=== PATIENT | male | born 1955 | race Caucasian/White ===

== ENCOUNTER 2016-10-31 13:32 | Inpatient (IN) ==
--- NOTE | 2016-10-28 14:51 | Discharge Summary ---
<Caroline Nielsen - Last Filed: 10/30/16 21:28> Date of Encounter: 10/30/16 - Discharge Diagnosis (1) Arthritis of right hip Priority: Primary Status: Acute (2) HTN (hypertension) Priority: Secondary Status: Chronic Qualifiers: Hypertension type: essential hypertension Qualified Code(s): I10 - Essential (primary) hypertension (3) Chronic pain Priority: Secondary Status: Chronic Comments: Hydrocodone/aravind 7.5/325mg BID - #60 LD 10/18/16 - Dr. Mills The plan will be to HOLD chronic pain medication at discharge, and start Oxycodone 5mg 1-2 tablets q 6 hours-~~~ This will be continued for 1-2 weeks post-op, then tapered down to~ normal dosage. Qualifiers: Chronic pain type: other chronic pain Qualified Code(s): G89.29 - Other chronic pain (4) Spinal stenosis Priority: Secondary Status: Chronic Qualifiers: Spinal region: unspecified Qualified Code(s): M48.00 - Spinal stenosis, site unspecified (5) COPD (chronic obstructive pulmonary disease) Priority: Secondary Status: Chronic Qualifiers: COPD type: unspecified COPD Qualified Code(s): J44.9 - Chronic obstructive pulmonary disease, unspecified (6) History of abdominal aortic aneurysm (AAA) Priority: Secondary Status: Chronic - Discharge Medications Home Medications: Aspirin Enteric Coated [Aspirin EC] 325 mg PO DAILY #21 tablet. 10/30/16 [Rx] OxyCODONE Immed Rel [Roxicodone 5 MG] 5 - 10 mg PO Q6HR PRN #40 tablet 10/30/16 [Rx] Atenolol [Tenormin] 25 mg PO DAILY 10/31/16 [History] Etodolac [Lodine] 400 mg PO BID 10/31/16 [History] Hydroxyzine HCl 50 mg PO Q6H PRN 10/31/16 [History] Allergies/Adverse Reactions: Allergies Penicillins Allergy (Verified 10/31/16 18:21) Nausea Primary care physician: LEMUEL Levin - Patient Status Disposition: Transfer Inpatient Rehab Fac Condition: Good - Discharge Instructions Follow Up With: Dexter Felder MD [Partnered Physician] - 11/29/16 9:35 am Caroline Nielsen, RIZWANA [Physician Bait Painter] - 11/10/16 11:45 am Verna Valentino CNP [Primary Care Provider] - Additional Instructions: Discharge Instructions: Total Hip Replacement Please call [facility] ([phone]), your Primary Care Physician, or report to the Emergency Room if you have any of the following symptoms: Nausea, vomiting, fever greater that 101.5, swelling, chest pain, shortness of breath, increased pain/redness/drainage/odor for your incision site, numbness/ tingling, or any other concerning symptoms. ACTIVITY:Weight-bearing as tolerated for 8 weeks with hip dislocation precautions that physical therapy taught you. You may progress as tolerated under the guidance of your physical therapist. You do not need to sleep with a pillow between your legs. You can also seep on the operative side or on your stomach. MEDICATIONS: Upon discharge resume your home medications. Take all the medications as prescribed. Take a stool softener if taking narcotic pain medications. Stool softeners are only effective if you drink enough fluids. Drink 6-8 glass of water or fluids a day, unless this is not allowed for another health problem. Despite using stool softeners, if you haven't had a bowel movement in 3 days, please switch to a gentle laxative. Gentle laxatives are sold over the counter. You should have a bowel movement within 24 hours, if not call the office. You will be discharged from the hospital with a prescription for pain medication. You are encouraged to decrease the use of narcotic pain medication as tolerated. Should you require a refill, please call the office. [facility] prescribes narcotic pain medication for only 4-6 weeks after surgery. If you require pain medication beyond this time periord, you may be referred to your Primary Care Physician or to the Pain Clinic for further evaluation. Plan ahead for refills on pain medication as many narcotics either need to be picked up at the office or mailed. It is best to call 48-72 hours in advance of needing a prescription refill so you don't run out of medication. To help control the post-operative pain, you may take NSAIDs (Aleve,Advil, Motrin, ibuprofen, naprosyn) or Tylenol as prescribed on the bottle in addition to the pain medication. ANTICOAGULATION (blood thinners): Continue your Aspirin, Lovenox or Coumadin as prescribed to help prevent a blood clot in the leg or in the lungs. As long as your incision remains dry and you tolerate the NSAIDs (Aleve, Advil, Motrin, ibuprofen, naprosyn), it is OK to use the NSAIDS while you are taking your anticoagulation medication. Should your incision start to drain, stop the NSAID and contact our office. Common symptoms of blood clot in the legs include: localized pain, swelling, calf tenderness, redness or discoloration of the skin. Blood clot in the lung symptoms include: shortness of breath, rapid pulse, sweating, and chest pain that worsens with deep breathing, coughing up blood, lightheadedness, feelings of anxiety. If you experience any of these symptoms notify your physician immediately, go to the emergency room, or if having trouble breathing, call 911. WOUND CARE: Leave the dressing on for 7 days. You may change the dressing if it is saturated greater than 50%. You can shower but not a tub bath or submerge your incision in water. Wash your hands with antibacterial soap, rinse and dry prior to any wound care. If you have yuriy the visiting nurse or rehab facility can remove the stapes 10-14 days after surgery and place steri-strips across the wound. Leave the steri-strips in place until they fall off on their won. You may let water from the shower run on top of the steri-stirips. If you do not have a visiting nurse or rehab facility, you will need to return to the office at 10-14 days for the yuriy to be removed. FOLLOW-UP: Please follow up with your surgeon in the orthopedic clinic in 6 weeks from the day of surgery. If you have yuriy that need to be removed, you will need to come back to the office in 10-14 days from the day of surgery. - Hospital Course Hospital course: Mr. Ortiz is a 61 year old male - Time Spent with Patient Total time spent providing and/or coordinating discharge services: <Dexter Felder - Last Filed: 11/03/16 08:02> Date of Encounter: 11/03/16 Time of Encounter: 08:02 - Discharge Diagnosis (1) Arthritis of right hip Priority: Primary Status: Acute (2) HTN (hypertension) Priority: Secondary Status: Chronic Qualifiers: Hypertension type: essential hypertension Qualified Code(s): I10 - Essential (primary) hypertension (3) Chronic pain Priority: Secondary Status: Chronic Qualifiers: Chronic pain type: other chronic pain Qualified Code(s): G89.29 - Other chronic pain (4) Spinal stenosis Priority: Secondary Status: Chronic Qualifiers: Spinal region: unspecified Qualified Code(s): M48.00 - Spinal stenosis, site unspecified (5) COPD (chronic obstructive pulmonary disease) Priority: Secondary Status: Chronic Qualifiers: COPD type: unspecified COPD Qualified Code(s): J44.9 - Chronic obstructive pulmonary disease, unspecified (6) History of abdominal aortic aneurysm (AAA) Priority: Secondary Status: Chronic Primary care physician: LEMUEL Levin - Patient Status Functional capacity at discharge: uses cane/walker Overall status at discharge: patient is progressing back to baseline - Hospital Course Hospital course: Mr. Ortiz is a 61 year old male The patient had an uneventful postoperative course. They received antibiotics and physical therapy and were discharged in stable condition. There will follow -up in the office in 2 weeks. Aspirin DVT prophylaxis - Time Spent with Patient Total time spent providing and/or coordinating discharge services:
[2016-10-31] MEDS ORDERED: Lidocaine -MPF 1% 2 ML VIAL ID ONE (13:58)
[2016-10-31] MEDS ORDERED: Clindamycin 900 MG/50 ML 900 MG/50 ML IV.SOLN IVPB ONE (13:58)
[2016-10-31] MEDS ORDERED: Famotidine 20 MG/2 ML VIAL IVP ONE (14:00)
[2016-10-31] MEDS ORDERED: Ringers Solution, Lactated 1,000 ML IVC SCH ×2 (14:00)
[2016-10-31] MEDS ORDERED: Albuterol 2.5 MG/3 ML NEBULIZER IH ONE (14:05)
--- NOTE | 2016-10-31 14:05 | Anesthesia Evaluation PreOp ---
Date of Encounter: 10/31/16 Time of Encounter: 14:00 - Past History Planned Operation: Rt THR Cardiac History: HTN, Other (AAA being followed...stable) Pulmonary History: Former smoker FRAME OPENER History: Other (Spinal Stenosis) Other Medical History: Denies Any Significant HX (Creatinine), Renal Anesthesia History: No Prior Anesthetic Complications Alcohol Use: none Drug use: none Medications and Allergies Aspirin Enteric Coated [Aspirin EC] 325 mg PO DAILY #21 tablet. 10/30/16 [Rx] OxyCODONE Immed Rel [Roxicodone 5 MG] 5 - 10 mg PO Q6HR PRN #40 tablet 10/30/16 [Rx] Allergies Penicillins Allergy (Verified 08/08/16 22:03) Nausea - Meds/Allergy Pre-op Review Medications Reviewed: Yes Allergies Reviewed: Yes Beta Blockers on Current Med List: No Anesthesia Results - Labs Laboratory Tests 10/24/16 10/24/16 10/26/16 14:50 14:50 14:35 Hgb 13.7 Hct 41.7 Plt Count TNP Sodium 138 Potassium 4.7 H BUN 14 Creatinine 1.45 H - Imaging EKG: report reviewed (SR) Anesthesia Exam O2 Sat Height 1.85 m Weight 90.265 kg O2 Sat by Pulse Oximetry 96 Vital Signs Temp Pulse Resp BP Pulse Ox 97.9 F 53 16 142/77 96 10/31/16 13:37 10/31/16 13:37 10/31/16 13:37 10/31/16 13:37 10/31/16 13:37 Height: 6'1 Weight: 199 lbs NPO (# of Hours): MN Pain Scale: 0 - HEENT Pupil (Motor): Pupils equal, EOMI Mallampati: III Teeth: Edentulous Oral Opening: Less than or equal to 3 - FRAME OPENER LOC: Oriented FRAME OPENER Motor: Normal RUE, Normal LUE, Normal RLE, Normal LLE, Normal Face FRAME OPENER Sensory: Normal: RUE, LUE, RLE, LLE, Face - Cardiac Rhythm: Regular Murmur: None JVD: No Carotid Bruit: No - Pulmonary Breath Sounds: bilateral Clear Respiratory Effort: Symmetrical Anesthesia Assess/Plan ASA Score: 3 (HTN AAA(stable) Anxiety) Modified [place] Scale for Level of Consciousness: Cooperative, oriented, and tranquil Anesthetic Plan: General Monitoring Plan: Standard Monitors Recovery Plan: PACU (Discussed GA, agrees melonie proceed)
[2016-10-31] MEDS ORDERED: *HR* FentaNYL (PF) 100 MCG/2 ML VIAL ONE ×2 (14:13→15:49)
[2016-10-31] MEDS ORDERED: *HR* Midazolam HCl 2 MG/2 ML VIAL ONE (14:13)
[2016-10-31] MEDS ORDERED: *HR* Succinylcholine 200 MG/10 ML VIAL IVP ONE (14:13)
[2016-10-31] MEDS ORDERED: *HR* Propofol 200 MG/20 ML VIAL IVP ONE ×2 (14:13→15:50)
[2016-10-31] MEDS ORDERED: Ondansetron 4 MG/2 ML VIAL ONE ×2 (14:13→15:50)
[2016-10-31] MEDS ORDERED: Lidocaine -MPF 2% 2 ML VIAL ONE ×2 (14:13→15:50)
--- NOTE | 2016-10-31 14:17 | History & Physical Report ---
Date of Encounter: 10/31/16 Time of Encounter: 14:16 24 Hour HP Update - Instructions Instructions: If the History and Physical is less than 30 days old and was completed prior to A.M. admission and or procedure and has NOT been updated on calendar day of procedure please complete this update prior to performing procedure. - Update Patient reports changes in Medical Condition: No Changes in examination, assessment, or condition: No Changes in Medication: No Preop tests/diagnostics Reviewed: Yes Surgery Remains Indicated: Yes Consent for Planned Operative Procedure(s) Verified: Yes - Pre-Operative Checklist Preoperative Checklist Indicated: No Prophylactic Antibiotic Ordered: Yes Is VTE Prophylaxis Indicated?: Yes
[2016-10-31] MEDS ORDERED: *HR* Rocuronium Bromide 50 MG/5 ML VIAL ONE (15:50)
[2016-10-31] MEDS ORDERED: Dexamethasone 4 MG/ML VIAL ONE (15:50)
[2016-10-31] MEDS ORDERED: Lidocaine -MPF 4% 5 ML AMPUL ONE (15:55)
[2016-10-31] MEDS ORDERED: EPHEDrine 50 MG/ML VIAL ONE (16:05)
--- NOTE | 2016-10-31 16:36 | Orthopedic Operative Note ---
Date of procedure: 10/31/16 Pre-op diagnosis: Severe right hip arthritis proximal femoral migration Post-op diagnosis: same (Flexion contracture) Procedure: Procedure: Right Total Hip Replacment Estimated blood loss: 200 cc Hardware: Biomet DM Cup: 66 G7 fin cup Femoral size 13 echo full profile lateralized stem Head: +12 head with Apurva Procedural Notes: End-stage arthritis femoral head acetabular socket, 45 degree fixed flexion contracture. Operative procedure: The patient was brought to the operating room and placed on the operating room table. After general anesthesia was administered the patient was placed in the lateral decubitus position with the operative leg up. All pressure points were padded appropriately and the head was stabilized in the neutral position. The operative extremity was prepped and draped in the sterile surgical fashion patient received IV antibiotic prior to skin incision. A standard posterior approach is made to the operative hip, the incision was made through the skin and subcutaneous tissue hemostasis was obtained with Bovie cautery. Using careful sharp dissection the fascia was identified and incised exposing the external rotators. The external rotators were released off the greater trochanter and tagged with #2 FiberWire suture. The capsule was T'd open and the hip was brought into internal rotation. Patient noted to have grade 4 arthritic changes femoral head. The femoral neck cut was made at the appropriate level. An anterior capsulotomy was performed for the anterior retractor. Soft tissues removed from the acetabulum. Patient noted to have grade 4 arthritic changes acetabulum. Acetabulum was first reamed medially, and then reamed in 15 degrees of anteversion and 45 degrees off the horizontal. It was reamed up to the appropriate size 66 The appropriate-sized 66 acetabular cup was impacted in place in 15 degrees of anteversion and 45 degrees off the horizontal. This had good fit and fixation. The hip was brought back in to internal rotation and prepared with the box spring upholsterer followed by the canal finder followed by broaching process in 20 degrees anteversion. It was broached up to the appropriate size 13 The femoral implant was impacted in place in 20 degrees of anteversion. Trial reduction found the hip to be stable with a +12 head and Apurva. The trials were removed and the real implants were impacted in place. The hip was stable with forward flexion to 90 degrees adduction of 30 degrees internal rotation 60 degrees. Patient had improvement of flexion contracture was still tight loss of full extension 30 degrees. Leg lengths unable to be appropriately evaluated due to loss of full extension. The hips after 2 minutes with a Betadine saline solution. It was irrigated out with 2 L of pulse irrigation. The external rotators were reattached to drill holes in the greater trochanter. Fascia was closed with a running #2 PDS suture. The deep tissue was irrigated and closed deep with #1 PDS suture superficially with 0 PDS suture and skin was closed with skin yuriy. The patient was placed in a sterile dressing and abduction pillow. The patient was extubated and transferred to the recovery room in stable condition. Anesthesia: CLAIRE Surgeon: Dexter Felder Master Sheet Clerk: Charlene Wagoner Condition: stable Disposition: PACU
[2016-10-31] MEDS ORDERED: Ondansetron 4 MG/2 ML VIAL IVP ONE (16:37)
[2016-10-31] MEDS ORDERED: Ketorolac 30 MG/ML VIAL ONE (16:39)
[2016-10-31] MEDS: *HR* Morphine 2 MG/ML SYRINGE IVP PRN ×5 (17:10→17:43)
[2016-10-31 17:54] LABS: Hematocrit 36.7 % (37.5-50.1)
[2016-10-31 17:56] LABS: Hemoglobin 11.9 g/dL (12.9-16.9)
--- NOTE | 2016-10-31 17:56 | Anesthesia Evaluation Post Op ---
Date of Encounter: 10/31/16 Time of Encounter: 17:56 - Vital Signs Vital Signs: Vital Signs/O2 Sat/Glucose, Most Current Temp Pulse Resp BP Pulse Ox 10/31/16 17:45 54 16 131/81 94 10/31/16 17:35 97.6 F 62 16 136/86 94 10/31/16 17:25 64 16 124/86 96 10/31/16 17:15 51 16 128/97 95 10/31/16 17:05 97.5 F L 58 12 136/111 98 10/31/16 14:26 16 142/77 96 10/31/16 14:06 97.9 F 53 16 142/77 96 - Lungs Lungs: Clear Ascult./Percussion - Airway Airway: Non-obstructed - Cardiovascular Regular Rate - Mental Status Mental Status: Alert & Oriented, Answers Appropriately - Pain Pain Scale: 4 - Nausea Vomiting Nausea Vomiting: Not Present - Hydration Hydration: Ice chips - Discharge PostOp Status: Transfer Patient to floor
[2016-10-31] MEDS ORDERED: *HR* Enoxaparin 30 MG/0.3 ML SYRINGE SQ SCH (18:00)
[2016-10-31] MEDS ORDERED: Ondansetron 4 MG/2 ML VIAL IVP PRN (18:17)
[2016-10-31] MEDS ORDERED: Naloxone 0.4 MG/ML INJ IVP PRN (18:17)
[2016-10-31] MEDS ORDERED: MOM Conc 10 ML UD.LIQ PO PRN (18:17)
[2016-10-31] MEDS ORDERED: Sennosides 8.6 MG TABLET PO PRN (18:17)
[2016-10-31] MEDS ORDERED: *HR* OxyCODONE Immed Rel 5 MG TABLET PO PRN (18:17)
[2016-10-31] MEDS ORDERED: Acetaminophen 325 MG TABLET PO PRN (18:17)
[2016-10-31] MEDS: Ringers Solution, Lactated 1,000 ML IVC SCH (20:02)
[2016-10-31] MEDS: Ascorbic Acid 500 MG TABLET PO SCH (20:02)
[2016-10-31] MEDS: *HR* OxyCODONE Immed Rel 5 MG TABLET PO PRN (21:31)
[2016-10-31] MEDS: Clindamycin 900 MG/50 ML 900 MG/50 ML IV.SOLN IVPB SCH (21:33)
[2016-11-01] MEDS: Temazepam 15 MG CAPSULE PO PRN ×2 (00:14→22:04)
[2016-11-01] MEDS: *HR* OxyCODONE Immed Rel 5 MG TABLET PO PRN ×4 (02:18→20:50)
[2016-11-01] MEDS: Clindamycin 900 MG/50 ML 900 MG/50 ML IV.SOLN IVPB SCH (05:03)
[2016-11-01] MEDS: *HR* Enoxaparin 30 MG/0.3 ML SYRINGE SQ SCH ×2 (05:06→16:22)
--- NOTE | 2016-11-01 06:49 | Orthopedics Progress Note ---
Date of Encounter: 11/01/16 Time of Encounter: 06:48 - Assessment and Plan (1) Arthritis of right hip Current Visit: Yes Status: Acute (2) HTN (hypertension) Current Visit: Yes Status: Chronic Qualifiers: Hypertension type: essential hypertension Qualified Code(s): I10 - Essential (primary) hypertension (3) Chronic pain Current Visit: Yes Status: Chronic Qualifiers: Chronic pain type: other chronic pain Qualified Code(s): G89.29 - Other chronic pain (4) Spinal stenosis Current Visit: Yes Status: Chronic Qualifiers: Spinal region: unspecified Qualified Code(s): M48.00 - Spinal stenosis, site unspecified (5) COPD (chronic obstructive pulmonary disease) Current Visit: Yes Status: Chronic Qualifiers: COPD type: unspecified COPD Qualified Code(s): J44.9 - Chronic obstructive pulmonary disease, unspecified (6) History of abdominal aortic aneurysm (AAA) Current Visit: Yes Status: Chronic Subjective Interval history: Patient was seen this morning doing well without complaints. Afebrile vital signs stable. Operative extremity: Neurovascularly intact Dressing clean dry and intact Calves nontender Assessment and plan: Continue with postoperative care Hematocrit 36 Objective Vital signs: Vital Signs Temp Pulse Resp BP Pulse Ox 11/01/16 06:40 99.4 F 49 14 114/74 95 11/01/16 06:38 96 11/01/16 04:07 99.1 F 66 15 123/78 94 11/01/16 00:06 98.3 F 51 15 122/72 95 10/31/16 22:05 98 F 60 14 113/78 96 10/31/16 21:00 97.9 F 52 12 122/85 96 10/31/16 20:08 97.6 F 50 14 105/64 95 10/31/16 19:48 97.5 F L 54 14 107/69 96 10/31/16 19:40 97.5 F L 54 14 107/69 96 10/31/16 18:23 97 10/31/16 18:18 97.8 F 52 12 127/83 98 10/31/16 17:55 97.5 F L 53 16 138/81 94 10/31/16 17:45 54 16 131/81 94 10/31/16 17:35 97.6 F 62 16 136/86 94 10/31/16 17:25 64 16 124/86 96 04/03/17 17:15 51 16 128/97 95 10/31/16 17:05 97.5 F L 58 12 136/111 98 10/31/16 14:26 16 142/77 96 10/31/16 14:06 97.9 F 53 16 142/77 96 10/31/16 13:37 97.9 F 53 16 142/77 96 Intake and Output 10/31/16 10/31/16 11/01/16 15:59 23:59 07:59 Intake Total 290 / 290 Balance 290 / 290 Intake: IV Fluids 50 / 50 Cleocin 900 MG/50 ML 900 50 / 50 mg In 50 ml @ 50 mls/hr IVPB Q8H RICHARD Rx#: [id number] Oral 240 / 240 Other: # Voids 1 Weight 90.265 kg - Labs CBC & BMP: 10/31/16 17:47 Labs: Abnormal lab results Hgb 11.9 g/dL (12.9-16.9) L D 10/31/16 17:47 Hct 36.7 % (37.5-50.1) L 10/31/16 17:47 - VTE Documentation of Mechanical Device: Venous foot pump, device Consult Discharge Plan - Plan Referrals: Verna Valentino MANUFACTURER'S REPRESENTATIVE [Primary Care Provider] -
[2016-11-01 07:03] LABS: Hemoglobin 10.7 g/dL (12.9-16.9)
[2016-11-01 07:21] LABS: Calcium 9.3 mg/dL (8.6-10.8); Potassium 4.3 mEq/L (3.5-4.5)
[2016-11-01] MEDS: Ascorbic Acid 500 MG TABLET PO SCH ×2 (09:31→16:22)
[2016-11-01] MEDS: Multivit/Ca/Min/Fe/FA 1 TAB TABLET PO SCH (09:33)
[2016-11-01] MEDS: Ringers Solution, Lactated 1,000 ML IVC SCH (09:38)
[2016-11-01] MEDS: Nicotine 21 MG PATCH.TD24 TD SCH (17:43)
[2016-11-01] MEDS: *HR* HYDROmorphone (PF) 1 MG/ML SYRINGE IVP PRN ×2 (18:14→22:03)
[2016-11-02] MEDS: *HR* OxyCODONE Immed Rel 5 MG TABLET PO PRN ×5 (00:11→20:24)
[2016-11-02] MEDS: *HR* Enoxaparin 30 MG/0.3 ML SYRINGE SQ SCH ×2 (06:37→16:22)
[2016-11-02 06:44] LABS: Hematocrit 31.8 % (37.5-50.1); Hemoglobin 10.5 g/dL (12.9-16.9)
[2016-11-02 07:06] LABS: Calcium 9.3 mg/dL (8.6-10.8); Potassium 3.9 mEq/L (3.5-4.5)
--- NOTE | 2016-11-02 08:28 | Orthopedics Progress Note ---
Date of Encounter: 11/02/16 Time of Encounter: 08:28 - Assessment and Plan (1) Arthritis of right hip Current Visit: Yes Status: Acute (2) HTN (hypertension) Current Visit: Yes Status: Chronic Qualifiers: Hypertension type: essential hypertension Qualified Code(s): I10 - Essential (primary) hypertension (3) Chronic pain Current Visit: Yes Status: Chronic Qualifiers: Chronic pain type: other chronic pain Qualified Code(s): G89.29 - Other chronic pain (4) Spinal stenosis Current Visit: Yes Status: Chronic Qualifiers: Spinal region: unspecified Qualified Code(s): M48.00 - Spinal stenosis, site unspecified (5) COPD (chronic obstructive pulmonary disease) Current Visit: Yes Status: Chronic Qualifiers: COPD type: unspecified COPD Qualified Code(s): J44.9 - Chronic obstructive pulmonary disease, unspecified (6) History of abdominal aortic aneurysm (AAA) Current Visit: Yes Status: Chronic Subjective Interval history: Patient was seen this morning doing well without complaints. Afebrile vital signs stable. Operative extremity: Neurovascularly intact Dressing clean dry and intact Calves nontender Assessment and plan: Continue with postoperative care Hematocrit 31 Objective Vital signs: Vital Signs Temp Pulse Resp BP Pulse Ox 11/02/16 06:29 98.1 F 61 20 151/82 96 11/02/16 00:32 98.3 F 64 18 122/68 97 11/01/16 19:46 98.7 F 85 17 141/68 96 11/01/16 14:51 97.7 F 58 16 132/79 96 11/01/16 10:30 98.2 F 48 14 110/70 96 Intake and Output 11/01/16 11/02/16 11/02/16 23:59 07:59 15:59 Intake Total 440 / 440 250 / 250 Output Total 450 / 450 300 / 300 Balance -10 / -10 -50 / -50 Intake: Oral 440 / 440 250 / 250 Output: Urine 450 / 450 300 / 300 Other: Meal Dinner Percent of Meal Consumed 50% - Labs CBC & BMP: 11/02/16 06:10 11/02/16 06:10 Labs: Abnormal lab results Hgb 10.5 g/dL (12.9-16.9) L 11/02/16 06:10 Hct 31.8 % (37.5-50.1) L 11/02/16 06:10 Creatinine 1.66 mg/dL (0.72-1.25) H 11/02/16 06:10 Est GFR ( Amer) 51 (> 60) L 11/02/16 06:10 Est GFR (Non-Af Amer) 42 (> 60) L 11/02/16 06:10 - VTE Documentation of Mechanical Device: Venous foot pump, device Consult Discharge Plan - Plan Additional Instructions: Discharge Instructions: Total Hip Replacement Please call [facility] ([phone]), your Primary Care Physician, or report to the Emergency Room if you have any of the following symptoms: Nausea, vomiting, fever greater that 101.5, swelling, chest pain, shortness of breath, increased pain/redness/drainage/odor for your incision site, numbness/ tingling, or any other concerning symptoms. ACTIVITY:Weight-bearing as tolerated for 8 weeks with hip dislocation precautions that physical therapy taught you. You may progress as tolerated under the guidance of your physical therapist. You do not need to sleep with a pillow between your legs. You can also seep on the operative side or on your stomach. MEDICATIONS: Upon discharge resume your home medications. Take all the medications as prescribed. Take a stool softener if taking narcotic pain medications. Stool softeners are only effective if you drink enough fluids. Drink 6-8 glass of water or fluids a day, unless this is not allowed for another health problem. Despite using stool softeners, if you haven't had a bowel movement in 3 days, please switch to a gentle laxative. Gentle laxatives are sold over the counter. You should have a bowel movement within 24 hours, if not call the office. You will be discharged from the hospital with a prescription for pain medication. You are encouraged to decrease the use of narcotic pain medication as tolerated. Should you require a refill, please call the office. [facility] prescribes narcotic pain medication for only 4-6 weeks after surgery. If you require pain medication beyond this time periord, you may be referred to your Primary Care Physician or to the Pain Clinic for further evaluation. Plan ahead for refills on pain medication as many narcotics either need to be picked up at the office or mailed. It is best to call 48-72 hours in advance of needing a prescription refill so you don't run out of medication. To help control the post-operative pain, you may take NSAIDs (Aleve,Advil, Motrin, ibuprofen, naprosyn) or Tylenol as prescribed on the bottle in addition to the pain medication. ANTICOAGULATION (blood thinners): Continue your Aspirin, Lovenox or Coumadin as prescribed to help prevent a blood clot in the leg or in the lungs. As long as your incision remains dry and you tolerate the NSAIDs (Aleve, Advil, Motrin, ibuprofen, naprosyn), it is OK to use the NSAIDS while you are taking your anticoagulation medication. Should your incision start to drain, stop the NSAID and contact our office. Common symptoms of blood clot in the legs include: localized pain, swelling, calf tenderness, redness or discoloration of the skin. Blood clot in the lung symptoms include: shortness of breath, rapid pulse, sweating, and chest pain that worsens with deep breathing, coughing up blood, lightheadedness, feelings of anxiety. If you experience any of these symptoms notify your physician immediately, go to the emergency room, or if having trouble breathing, call 911. WOUND CARE: Leave the dressing on for 7 days. You may change the dressing if it is saturated greater than 50%. You can shower but not a tub bath or submerge your incision in water. Wash your hands with antibacterial soap, rinse and dry prior to any wound care. If you have yuriy the visiting nurse or rehab facility can remove the stapes 10-14 days after surgery [address] steri-strips across the wound. Leave the steri-strips in place until they fall off on their won. You may let water from the shower run on top of the steri-stirips. If you do not have a visiting nurse or rehab facility, you will need to return to the office at 10-14 days for the yuriy to be removed. FOLLOW-UP: Please follow up with your surgeon in the orthopedic clinic in 6 weeks from the day of surgery. If you have yuriy that need to be removed, you will need to come back to the office in 10-14 days from the day of surgery. Referrals: Dexter Felder MD [Partnered Physician] - 11/29/16 9:35 am Caroline Nielsen PAC [Physician Children'S Entertainer] - 11/10/16 11:45 am Verna Valentino CNP [Primary Care Provider] -
[2016-11-02] MEDS: Ascorbic Acid 500 MG TABLET PO SCH ×2 (09:49→16:20)
[2016-11-02] MEDS: Multivit/Ca/Min/Fe/FA 1 TAB TABLET PO SCH (09:49)
[2016-11-02] MEDS: Nicotine 21 MG PATCH.TD24 TD SCH (09:50)
[2016-11-03] MEDS: *HR* OxyCODONE Immed Rel 5 MG TABLET PO PRN ×3 (00:52→10:00)
[2016-11-03] MEDS: *HR* Enoxaparin 30 MG/0.3 ML SYRINGE SQ SCH (05:00)
[2016-11-03 07:06] VITALS: BP 137/88
--- NOTE | 2016-11-03 08:03 | Orthopedics Progress Note ---
Date of Encounter: 11/03/16 Time of Encounter: 08:02 - Assessment and Plan (1) Arthritis of right hip Current Visit: Yes Status: Acute (2) HTN (hypertension) Current Visit: Yes Status: Chronic Qualifiers: Hypertension type: essential hypertension Qualified Code(s): I10 - Essential (primary) hypertension (3) Chronic pain Current Visit: Yes Status: Chronic Qualifiers: Chronic pain type: other chronic pain Qualified Code(s): G89.29 - Other chronic pain (4) Spinal stenosis Current Visit: Yes Status: Chronic Qualifiers: Spinal region: unspecified Qualified Code(s): M48.00 - Spinal stenosis, site unspecified (5) COPD (chronic obstructive pulmonary disease) Current Visit: Yes Status: Chronic Qualifiers: COPD type: unspecified COPD Qualified Code(s): J44.9 - Chronic obstructive pulmonary disease, unspecified (6) History of abdominal aortic aneurysm (AAA) Current Visit: Yes Status: Chronic Subjective Interval history: Patient was seen this morning doing well without complaints. Afebrile vital signs stable. Operative extremity: Neurovascularly intact Dressing clean dry and intact Calves nontender Assessment and plan: Continue with postoperative care Discharged today Objective Vital signs: Vital Signs Temp Pulse Resp BP Pulse Ox 11/03/16 07:04 98.4 F 61 14 137/88 96 11/03/16 00:00 97.5 F L 53 18 119/73 96 11/02/16 20:30 97 11/02/16 20:00 98.3 F 61 17 119/77 97 11/02/16 15:41 98.3 F 74 18 115/73 98 11/02/16 10:27 98.5 F 68 18 147/86 97 Intake and Output 11/02/16 11/03/16 11/03/16 23:59 07:59 15:59 Intake Total 900 / 900 300 / 300 Output Total 650 / 650 300 / 300 Balance 250 / 250 0 / 0 Intake: Oral 900 / 900 300 / 300 Output: Urine 650 / 650 300 / 300 Other: # Voids 1 - Labs CBC & BMP: 11/02/16 06:10 11/02/16 06:10 Labs: Abnormal lab results Hgb 10.5 g/dL (12.9-16.9) L 11/02/16 06:10 Hct 31.8 % (37.5-50.1) L 11/02/16 06:10 Creatinine 1.66 mg/dL (0.72-1.25) H 11/02/16 06:10 Est GFR ( Amer) 51 (> 60) L 11/02/16 06:10 Est GFR (Non-Af Amer) 42 (> 60) L 11/02/16 06:10 - VTE Documentation of Mechanical Device: Venous foot pump, device Consult Discharge Plan - Plan Additional Instructions: Discharge Instructions: Total Hip Replacement Please call [facility] ([phone]), your Primary Care Physician, or report to the Emergency Room if you have any of the following symptoms: Nausea, vomiting, fever greater that 101.5, swelling, chest pain, shortness of breath, increased pain/redness/drainage/odor for your incision site, numbness/ tingling, or any other concerning symptoms. ACTIVITY:Weight-bearing as tolerated for 8 weeks with hip dislocation precautions that physical therapy taught you. You may progress as tolerated under the guidance of your physical therapist. You do not need to sleep with a pillow between your legs. You can also seep on the operative side or on your stomach. MEDICATIONS: Upon discharge resume your home medications. Take all the medications as prescribed. Take a stool softener if taking narcotic pain medications. Stool softeners are only effective if you drink enough fluids. Drink 6-8 glass of water or fluids a day, unless this is not allowed for another health problem. Despite using stool softeners, if you haven't had a bowel movement in 3 days, please switch to a gentle laxative. Gentle laxatives are sold over the counter. You should have a bowel movement within 24 hours, if not call the office. You will be discharged from the hospital with a prescription for pain medication. You are encouraged to decrease the use of narcotic pain medication as tolerated. Should you require a refill, please call the office. [facility] prescribes narcotic pain medication for only 4-6 weeks after surgery. If you require pain medication beyond this time periord, you may be referred to your Primary Care Physician or to the Pain Clinic for further evaluation. Plan ahead for refills on pain medication as many narcotics either need to be picked up at the office or mailed. It is best to call 48-72 hours in advance of needing a prescription refill so you don't run out of medication. To help control the post-operative pain, you may take NSAIDs (Aleve,Advil, Motrin, ibuprofen, naprosyn) or Tylenol as prescribed on the bottle in addition to the pain medication. ANTICOAGULATION (blood thinners): Continue your Aspirin, Lovenox or Coumadin as prescribed to help prevent a blood clot in the leg or in the lungs. As long as your incision remains dry and you tolerate the NSAIDs (Aleve, Advil, Motrin, ibuprofen, naprosyn), it is OK to use the NSAIDS while you are taking your anticoagulation medication. Should your incision start to drain, stop the NSAID and contact our office. Common symptoms of blood clot in the legs include: localized pain, swelling, calf tenderness, redness or discoloration of the skin. Blood clot in the lung symptoms include: shortness of breath, rapid pulse, sweating, and chest pain that worsens with deep breathing, coughing up blood, lightheadedness, feelings of anxiety. If you experience any of these symptoms notify your physician immediately, go to the emergency room, or if having trouble breathing, call 911. WOUND CARE: Leave the dressing on for 7 days. You may change the dressing if it is saturated greater than 50%. You can shower but not a tub bath or submerge your incision in water. Wash your hands with antibacterial soap, rinse and dry prior to any wound care. If you have yuriy the visiting nurse or rehab facility can remove the stapes 10-14 days after surgery and place steri-strips across the wound. Leave the steri-strips in place until they fall off on their won. You may let water from the shower run on top of the steri-stirips. If you do not have a visiting nurse or rehab facility, you will need to return to the office at 10-14 days for the yuriy to be removed. FOLLOW-UP: Please follow up with your surgeon in the orthopedic clinic in 6 weeks from the day of surgery. If you have yuriy that need to be removed, you will need to come back to the office in 10-14 days from the day of surgery. Referrals: Dexter Felder MD [Partnered Physician] - 11/29/16 9:35 am Mulvany,Caroline L, PAC [Physician Knitter Machine] - 11/10/16 11:45 am Verna Valentino, MULTIPLE SLIDE OPERATOR [Primary Care Provider] -
[2016-11-03] MEDS: Nicotine 21 MG PATCH.TD24 TD SCH (08:26)
[2016-11-03] MEDS: Multivit/Ca/Min/Fe/FA 1 TAB TABLET PO SCH (08:27)
[2016-11-03] MEDS: Ascorbic Acid 500 MG TABLET PO SCH (08:27)
== END 2016-11-03 11:46 | DRG 470 ==
LOC: SAMDAY 13:32 → 3NENU 18:04
PROVIDERS: ADMIT Orthopaedic Surgery; ATTEND Orthopaedic Surgery

== ENCOUNTER 2016-12-15 13:16 | Inpatient (IN) ==
[2016-12-15] MEDS ORDERED: Famotidine 20 MG/2 ML VIAL IVP ONE (13:33)
[2016-12-15] MEDS ORDERED: Ringers Solution, Lactated 1,000 ML IVC SCH ×2 (13:45→14:15)
[2016-12-15] MEDS ORDERED: Vancomycin 1,250 MG in D5% in Water 250 ML IVPB ONE (13:49)
--- NOTE | 2016-12-15 13:49 | History & Physical Report ---
Date of Encounter: 12/15/16 Time of Encounter: 13:49 24 Hour HP Update - Instructions Instructions: If the History and Physical is less than 30 days old and was completed prior to A.M. admission and or procedure and has NOT been updated on calendar day of procedure please complete this update prior to performing procedure. - Update Patient reports changes in Medical Condition: No Changes in examination, assessment, or condition: No Changes in Medication: No Preop tests/diagnostics Reviewed: Yes Surgery Remains Indicated: Yes Consent for Planned Operative Procedure(s) Verified: Yes - Pre-Operative Checklist Preoperative Checklist Indicated: No Prophylactic Antibiotic Ordered: Yes Is VTE Prophylaxis Indicated?: Yes
[2016-12-15] MEDS ORDERED: *HR* Succinylcholine 200 MG/10 ML VIAL IVP ONE (13:58)
[2016-12-15] MEDS ORDERED: Ondansetron 4 MG/2 ML VIAL ONE (13:58)
[2016-12-15] MEDS ORDERED: Lidocaine -MPF 2% 2 ML VIAL ONE (13:58)
[2016-12-15] MEDS ORDERED: Dexamethasone 4 MG/ML VIAL ONE (13:58)
[2016-12-15] MEDS ORDERED: *HR* Propofol 200 MG/20 ML VIAL IVP ONE (13:59)
[2016-12-15] MEDS ORDERED: *HR* FentaNYL (PF) 100 MCG/2 ML VIAL ONE (13:59)
--- NOTE | 2016-12-15 14:04 | Discharge Summary ---
Date of Encounter: 12/17/16 Time of Encounter: 06:50 - Discharge Diagnosis (1) Drainage from wound Priority: Primary Status: Acute Comments: Status post right total hip replacement (2) HTN (hypertension) Priority: Secondary Status: Chronic Qualifiers: Hypertension type: unspecified secondary hypertension Qualified Code(s): I15.9 - Secondary hypertension, unspecified; I15 - Secondary hypertension (3) Chronic pain Priority: Secondary Status: Chronic Qualifiers: Chronic pain type: other chronic pain Qualified Code(s): G89.29 - Other chronic pain (4) Spinal stenosis Priority: Secondary Status: Chronic Qualifiers: Spinal region: unspecified Qualified Code(s): M48.00 - Spinal stenosis, site unspecified (5) COPD (chronic obstructive pulmonary disease) Priority: Secondary Status: Chronic Qualifiers: COPD type: unspecified COPD Qualified Code(s): J44.9 - Chronic obstructive pulmonary disease, unspecified (6) History of abdominal aortic aneurysm (AAA) Priority: Secondary Status: Chronic - Discharge Medications Prescriptions: Doxycycline 100 mg PO BID #20 capsule OxyCODONE Immed Rel [Roxicodone 5 MG] 5 - 10 mg PO Q6HR PRN #40 tablet PRN Reason: Pain Home Medications: Atenolol [Tenormin] 25 mg PO DAILY 10/31/16 [History] hydrOXYzine HCl [Hydroxyzine HCl] 50 mg PO Q6H PRN 10/31/16 [History] Aspirin Enteric Coated [Aspirin EC] 81 mg PO DAILY 12/15/16 [History] Na Phos,M-B/Na Phos,Di-Ba [Fleet Enema Extra] 230 ml RC AD PRN 12/15/16 [History ] OxyCODONE Immed Rel [Roxicodone 5 MG] 5 - 10 mg PO Q6HR PRN #40 tablet 12/15/16 [Rx] Doxycycline 100 mg PO BID #20 capsule 12/17/16 [Rx] Allergies/Adverse Reactions: Allergies Penicillins Allergy (Verified 10/31/16 18:21) Nausea Primary care physician: Efrem Mccauley CNP - Patient Status Disposition: Home, Self-Care Condition: Good Functional capacity at discharge: uses cane/walker Overall status at discharge: patient is progressing back to baseline - Discharge Instructions Follow Up With: Efrem Mccauley CNP [Primary Care Provider] - - Hospital Course Hospital course: Mr. Ortiz is a 61 year old male - Time Spent with Patient Total time spent providing and/or coordinating discharge services:
[2016-12-15] MEDS ORDERED: Sennosides 8.6 MG TABLET PO PRN (14:05)
[2016-12-15] MEDS ORDERED: *HR* OxyCODONE Immed Rel 5 MG TABLET PO PRN (14:05)
[2016-12-15] MEDS ORDERED: Ondansetron 4 MG/2 ML VIAL IVP PRN (14:05)
[2016-12-15] MEDS ORDERED: MOM Conc 10 ML UD.LIQ PO PRN (14:05)
[2016-12-15] MEDS ORDERED: *HR* HYDROmorphone (PF) 1 MG/ML SYRINGE IVP PRN (14:05)
[2016-12-15] MEDS ORDERED: Temazepam 15 MG CAPSULE PO PRN (14:05)
[2016-12-15] MEDS ORDERED: Naloxone 0.4 MG/ML INJ IVP PRN (14:05)
--- NOTE | 2016-12-15 14:10 | Anesthesia Evaluation PreOp ---
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 Other Medical History: Other (Anxiety) Anesthesia History: No Prior Anesthetic Complications Alcohol Use: none Drug use: none Medications and Allergies OxyCODONE Immed Rel [Roxicodone 5 MG] 5 - 10 mg PO Q6HR PRN #40 tablet 10/30/16 [Rx] Atenolol [Tenormin] 25 mg PO DAILY 10/31/16 [History] hydrOXYzine HCl [Hydroxyzine HCl] 50 mg PO Q6H PRN 10/31/16 [History] Aspirin Enteric Coated [Aspirin EC] 81 mg PO DAILY 12/15/16 [History] Na Phos,M-B/Na Phos,Di-Ba [Fleet Enema Extra] 230 ml RC AD PRN 12/15/16 [History ] cephALEXin [Keflex] 500 mg PO BID 12/15/16 [History] Allergies Penicillins Allergy (Verified 10/31/16 18:21) Nausea - Meds/Allergy Pre-op Review Medications Reviewed: Yes Allergies Reviewed: Yes Beta Blockers on Current Med List: No Anesthesia Results - Labs Laboratory Tests 10/26/16 11/02/16 11/02/16 14:35 06:10 06:10 Hgb 10.5 L Hct 31.8 L Plt Count TNP Sodium 138 Potassium 3.9 BUN 24 Creatinine 1.66 H - Imaging EKG: report reviewed (SR) Anesthesia Exam O2 Sat Height 1.85 m Height 1.85 m Height 1.85 m Weight 88.904 kg Weight 88.904 kg Weight 88.904 kg O2 Sat by Pulse Oximetry 93 Vital Signs Temp Pulse Resp BP Pulse Ox 98.9 F 60 18 124/76 93 12/15/16 13:39 12/15/16 13:39 12/15/16 13:39 12/15/16 13:39 12/15/16 13:39 Height: 6'1 Weight: 196 lbs NPO (# of Hours): MN Pain Scale: 0 - HEENT Pupil (Motor): Pupils equal, EOMI Mallampati: II Teeth: Normal Oral Opening: Greater than 3 - 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
[2016-12-15] MEDS ORDERED: *HR* Midazolam HCl 2 MG/2 ML VIAL ONE (14:15)
[2016-12-15] MEDS ORDERED: EPHEDrine 50 MG/ML VIAL ONE (15:24)
[2016-12-15] MEDS ORDERED: *HR* Promethazine 25 MG/ML VIAL IVP PRN (15:30)
[2016-12-15] MEDS ORDERED: Ondansetron 4 MG/2 ML VIAL IVP ONE (15:30)
[2016-12-15] MEDS ORDERED: *HR* Morphine 2 MG/ML SYRINGE IVP PRN (15:30)
[2016-12-15] MEDS ORDERED: *HR* Morphine 10 MG/ML VIAL ONE (15:47)
--- NOTE | 2016-12-15 16:09 | Orthopedic Operative Note ---
Date of procedure: 12/15/16 Pre-op diagnosis: Drainage from right hip incision Post-op diagnosis: same Procedure: Procedure: Right hip irrigation and debridement exchange of femoral head and articulating Apurva. Estimated blood loss: 200 cc Hardware: Metal and polyethylene replacement. Biomet DM +12 femoral head, 54 Apurva head Procedural Notes: Patient status post right total hip replacement one month ago. Persistent drainage from a pinhole area in the center of the incision. Consistent with serous fluid. This did not resolve with multiple conservative treatments. Intra-Op patient noted to have disruption of his tensa fascia Lexus material identified no significant serous fluid identified. Operative procedure: The patient was brought to the operating room and placed on the operating room table. After general anesthesia was administered the patient was placed in the lateral decubitus position with the right operative leg up. All pressure points were padded appropriately and the head was stabilized in the neutral position. Was noted that the incision was well-healed. There is just a small pinhole in the center of the incision no active drainage at this time. The operative extremity was prepped and draped in the sterile surgical fashion patient received IV antibiotic prior to skin incision. A standard posterior approach is made to the right operative hip, ellipticized the old incision, the incision was made through the skin and subcutaneous tissue hemostasis was obtained with Bovie cautery. Using careful sharp dissection the fascia was identified patient noted to have complete disruption of the central portion of the tensa fascia in the area of drainage. This defect went all the way down to the hip joint. There was no purulent material identified and minimal serous fluid. Cultures were obtained at this point. The hip was brought into internal rotation and dislocated the femoral head and articulating Apurva were removed. Extensive debridement was performed of any abnormal looking tissue. The hips after 2 minutes with a Betadine saline solution. This was irrigated out with 3 L. The hip was then irrigated out with pulse irrigation of 1 L of Bactisure and then 1 L of pulse irrigation normal saline. The +12 54 Apurva articulating head were impacted in place the hip was reduced, hip had good motion and good stability. Forward elevation 90 degrees adduction of 30 degrees internal rotation of 60 degrees with no instability. No shuck. Full extension. The fascia was then closed with a running #2 PDS suture for running passes. The deep tissue was irrigated and closed deep with #1 PDS suture superficially with 0 PDS suture and skin was closed with skin yuriy. The patient was placed in a sterile dressing and abduction pillow and knee immobilizer. The patient was extubated and transferred to the recovery room in stable condition. Anesthesia: GETA Surgeon: Dexter Felder Condition: stable Disposition: PACU
[2016-12-15] MEDS: *HR* HYDROmorphone (PF) 1 MG/ML SYRINGE IVP PRN ×4 (16:13→16:35)
[2016-12-15 16:33] LABS: Hematocrit 33.5 % (37.5-50.1); Hemoglobin 10.6 g/dL (12.9-16.9)
--- NOTE | 2016-12-15 16:55 | Anesthesia Evaluation Post Op ---
Date of Encounter: 12/15/16 Time of Encounter: 16:54 - Vital Signs Vital Signs: Vital Signs/O2 Sat, Most Current Temp Pulse Resp BP Pulse Ox 97.5 F L 57 16 111/71 94 12/15/16 16:48 12/15/16 16:48 12/15/16 16:48 12/15/16 16:48 12/15/16 16:48 - Lungs Lungs: Clear Ascult./Percussion - Airway Airway: Non-obstructed - Cardiovascular Regular Rate - Mental Status Mental Status: Alert & Oriented, Answers Appropriately - Pain Pain Scale: 5 Pain Scale used: Numeric (1 - 10) - Nausea Vomiting Nausea Vomiting: Not Present - Hydration Hydration: Ice chips, Has not voided - Discharge PostOp Status: Transfer Patient to floor
[2016-12-15] MEDS ORDERED: NON-FORMULARY MEDICATION 1 EACH EACH (Na Phos,M-B/Na Phos,Di-Ba [Fleet Enema Extra] 230 ML RC PRN (18:08)
[2016-12-15] MEDS: Ascorbic Acid 500 MG TABLET PO SCH (18:55)
[2016-12-15] MEDS: *HR* OxyCODONE Immed Rel 5 MG TABLET PO PRN (20:08)
[2016-12-16] MEDS: *HR* OxyCODONE Immed Rel 5 MG TABLET PO PRN ×6 (00:38→23:32)
[2016-12-16 05:25] LABS: BUN/Creatinine Ratio 12 (6-26); Blood Urea Nitrogen 13 mg/dL (8-26); Carbon Dioxide 22 mEq/L (19-29); Chloride 105 mEq/L (98-109); Glucose 119 mg/dL (70-99); Osmolality,Calculated 283 (280-300); Potassium 4.6 mEq/L (3.5-4.5); Sodium 136 mEq/L (136-145); eGFR For African Americans > 60 (> 60); eGFR For Non-African Americans > 60 (> 60)
[2016-12-16 05:26] LABS: Hematocrit 32.8 % (37.5-50.1); Hemoglobin 10.3 g/dL (12.9-16.9)
--- NOTE | 2016-12-16 06:31 | Orthopedics Progress Note ---
Date of Encounter: 12/16/16 Time of Encounter: 06:29 - Assessment and Plan (1) Drainage from wound Current Visit: Yes Status: Acute (2) HTN (hypertension) Current Visit: No Status: Chronic Qualifiers: Hypertension type: unspecified secondary hypertension Qualified Code(s): I15.9 - Secondary hypertension, unspecified; I15 - Secondary hypertension (3) Chronic pain Current Visit: No Status: Chronic Qualifiers: Chronic pain type: other chronic pain Qualified Code(s): G89.29 - Other chronic pain (4) Spinal stenosis Current Visit: No Status: Chronic Qualifiers: Spinal region: unspecified Qualified Code(s): M48.00 - Spinal stenosis, site unspecified (5) COPD (chronic obstructive pulmonary disease) Current Visit: No Status: Chronic Qualifiers: COPD type: unspecified COPD Qualified Code(s): J44.9 - Chronic obstructive pulmonary disease, unspecified (6) History of abdominal aortic aneurysm (AAA) Current Visit: No Status: Chronic Subjective Interval history: Patient was seen this morning doing well without complaints. Afebrile vital signs stable. Operative extremity: Neurovascularly intact Dressing clean dry and intact Calves nontender Assessment and plan: Continue with postoperative care hematocrit 32 gram- positive cocci in will await culture result No pus identified during procedure Objective Vital signs: Vital Signs Temp Pulse Resp BP Pulse Ox 12/16/16 03:45 97.9 F 47 19 123/72 97 12/16/16 00:23 98.4 F 50 17 120/68 95 12/15/16 21:22 97.9 F 48 15 123/65 96 12/15/16 19:40 97.6 F 53 15 119/73 98 12/15/16 18:15 97.9 F 52 16 98/56 98 12/15/16 17:45 97.9 F 51 15 103/64 98 12/15/16 17:22 97.6 F 51 15 105/52 97 12/15/16 17:15 97.2 F L 52 14 106/49 96 12/15/16 16:58 97.5 F L 53 16 110/59 97 12/15/16 16:48 97.5 F L 57 16 111/71 94 12/15/16 16:38 97.5 F L 53 16 113/57 95 12/15/16 16:28 64 16 123/71 96 12/15/16 16:18 62 16 122/73 92 12/15/16 16:08 98.7 F 60 16 119/71 98 12/15/16 15:26 98.9 F 60 18 124/76 93 12/15/16 13:39 98.9 F 60 18 124/76 93 Intake and Output 12/15/16 12/15/16 12/16/16 15:59 23:59 07:59 Intake Total 100 / 100 100 / 100 Output Total 200 / 200 200 / 200 Balance -200 / -200 100 / 100 -100 / -100 Intake: Oral 100 / 100 100 / 100 Output: Urine 0 / 0 200 / 200 Estimated Blood Loss 200 / 200 Other: Weight 88.904 kg - Labs CBC & BMP: 12/16/16 03:08 12/16/16 03:08 Labs: Abnormal lab results Hgb 10.3 g/dL (12.9-16.9) L 12/16/16 03:08 Hct 32.8 % (37.5-50.1) L 12/16/16 03:08 Potassium 4.6 mEq/L (3.5-4.5) H 12/16/16 03:08 Glucose 119 mg/dL (70-99) H 12/16/16 03:08 - VTE Documentation of Mechanical Device: Venous foot pump, device Consult Discharge Plan - Plan Referrals: Efrem Mccauley, CUSTOMS AND IMMIGRATION OFFICER [Primary Care Provider] - Prescriptions: OxyCODONE Immed Rel [Roxicodone 5 MG] 5 - 10 mg PO Q6HR PRN #40 tablet PRN Reason: Pain
[2016-12-16] MEDS: Multivit/Ca/Min/Fe/FA 1 TAB TABLET PO SCH (07:44)
[2016-12-16] MEDS: Ascorbic Acid 500 MG TABLET PO SCH ×2 (07:44→16:54)
[2016-12-16] MEDS: Aspirin Enteric Coated 81 MG Tablet PO SCH (07:44)
[2016-12-16] MEDS ORDERED: Vancomycin 1,000 MG VIAL IVPB SCH (13:00)
[2016-12-16] MEDS ORDERED: Vancomycin 1,250 MG in D5% in Water 250 ML IVPB ONE (13:15)
[2016-12-17 04:16] LABS: Hematocrit 31.9 % (37.5-50.1); Hemoglobin 10.4 g/dL (12.9-16.9)
[2016-12-17 04:27] LABS: BUN/Creatinine Ratio 14 (6-26); Blood Urea Nitrogen 18 mg/dL (8-26); Calcium 9.3 mg/dL (8.6-10.8); Carbon Dioxide 25 mEq/L (19-29); Chloride 107 mEq/L (98-109); Glucose 91 mg/dL (70-99); Osmolality,Calculated 291 (280-300); Potassium 4.5 mEq/L (3.5-4.5); Sodium 140 mEq/L (136-145); eGFR For African Americans > 60 (> 60); eGFR For Non-African Americans 59 (> 60)
[2016-12-17] MEDS: *HR* OxyCODONE Immed Rel 5 MG TABLET PO PRN ×2 (04:40→08:59)
[2016-12-17 06:36] VITALS: BP 126/64
--- NOTE | 2016-12-17 06:53 | Orthopedics Progress Note ---
Date of Encounter: 12/17/16 Time of Encounter: 06:53 - Assessment and Plan (1) Drainage from wound Current Visit: Yes Status: Acute (2) HTN (hypertension) Current Visit: No Status: Chronic Qualifiers: Hypertension type: unspecified secondary hypertension Qualified Code(s): I15.9 - Secondary hypertension, unspecified; I15 - Secondary hypertension (3) Chronic pain Current Visit: No Status: Chronic Qualifiers: Chronic pain type: other chronic pain Qualified Code(s): G89.29 - Other chronic pain (4) Spinal stenosis Current Visit: No Status: Chronic Qualifiers: Spinal region: unspecified Qualified Code(s): M48.00 - Spinal stenosis, site unspecified (5) COPD (chronic obstructive pulmonary disease) Current Visit: No Status: Chronic Qualifiers: COPD type: unspecified COPD Qualified Code(s): J44.9 - Chronic obstructive pulmonary disease, unspecified (6) History of abdominal aortic aneurysm (AAA) Current Visit: No Status: Chronic Subjective Interval history: Patient was seen this morning doing well without complaints. Afebrile vital signs stable. Operative extremity: Neurovascularly intact Dressing clean dry and intact Calves nontender Assessment and plan: Continue with postoperative care cultures negative discharged today Objective Vital signs: Vital Signs Temp Pulse Resp BP Pulse Ox 12/17/16 06:32 98.0 F 53 18 126/64 95 12/16/16 23:54 98.4 F 59 18 158/68 96 12/16/16 20:09 97.9 F 52 16 138/77 96 12/16/16 14:17 98.8 F 63 16 138/87 95 12/16/16 11:10 98.5 F 52 16 146/89 95 12/16/16 07:11 98.3 F 56 18 128/76 96 Intake and Output 12/16/16 12/16/16 12/17/16 15:59 23:59 07:59 Intake Total 750 / 750 300 / 300 Output Total 550 / 550 Balance 200 / 200 300 / 300 Intake: Oral 750 / 750 300 / 300 Output: Urine 550 / 550 Other: Meal Lunch Percent of Meal Consumed 100% # Voids 1 2 - Labs CBC & BMP: 12/17/16 04:00 12/17/16 04:00 Labs: Abnormal lab results Hgb 10.4 g/dL (12.9-16.9) L 12/17/16 04:00 Hct 31.9 % (37.5-50.1) L 12/17/16 04:00 Est GFR (Non-Af Amer) 59 (> 60) L 12/17/16 04:00 - VTE Documentation of Mechanical Device: Venous foot pump, device Consult Discharge Plan - Plan Referrals: Efrem Mccauley, SPEED BELT SANDER TENDER [Primary Care Provider] - Prescriptions: Doxycycline 100 mg PO BID #20 capsule OxyCODONE Immed Rel [Roxicodone 5 MG] 5 - 10 mg PO Q6HR PRN #40 tablet PRN Reason: Pain
[2016-12-17] MEDS: Multivit/Ca/Min/Fe/FA 1 TAB TABLET PO SCH (07:58)
[2016-12-17] MEDS: Aspirin Enteric Coated 81 MG Tablet PO SCH (07:58)
[2016-12-17] MEDS: Ascorbic Acid 500 MG TABLET PO SCH (08:59)
[2016-12-17] MEDS ORDERED: Aminoglycoside Consult 1 EACH MC ONE (09:25)
== END 2016-12-17 09:26 | disposition home or self-care (01) | DRG 468 ==
LOC: SAMDAY 13:16 → 3NENU 17:22
PROVIDERS: ADMIT Orthopaedic Surgery; ATTEND Orthopaedic Surgery